=== PATIENT | male | born 2000 | race Caucasian/White ===

== ENCOUNTER 2025-04-19 10:53 | Emergency (ER) | payer OTHER, BC | END 2025-04-19 11:00 | disposition left against medical advice (07) | LOC: ER 10:53 | DX: M25.519 Pain in unspecified shoulder (principal); Z53.21 Procedure and treatment not carried out due to patient leaving prior to being seen by health care provider ==

== ENCOUNTER 2025-10-09 11:45 | Emergency (ER) | payer BC, OTHER ==
[~2025-10-09] VITALS: Ht 185.4 cm; Wt 74.8 kg
[2025-10-09 12:11] VITALS: BP 127/68
[2025-10-09 13:12] VITALS: BP 127/68; TEMP 97.8; O2SAT 98
== END 2025-10-09 13:13 | disposition home or self-care (01) ==
LOC: ER 11:45
DX: S01.81XA Laceration without foreign body of other part of head, initial encounter (principal); Y04.0XXA Assault by unarmed brawl or fight, initial encounter; Y93.89 Activity, other specified; Y92.89 Other specified places as the place of occurrence of the external cause; Y99.9 Unspecified external cause status
CPT/HCPCS: A4606; A4663